=== PATIENT | female | born 1940 | race Caucasian/White ===

== ENCOUNTER 2020-03-08 11:55 | Outpatient (CLI) | payer MEDICARE ==
[2020-03-08] MEDS ORDERED: MELO15TA24 PO (12:53)
[2020-03-08] MEDS ORDERED: BUDE10.2 INH (12:53)
[2020-03-08] MEDS ORDERED: PRAM0.5T PO (12:53)
[2020-03-08] MEDS ORDERED: DIPH1TAB6 PO (12:53)
[2020-03-08] MEDS ORDERED: SIMV20TA19 PO (12:53)
[2020-03-08] MEDS ORDERED: ACET-1600 PO (12:53)
[2020-03-08] MEDS ORDERED: OMEP-110 PO (12:53)
[2020-03-08] MEDS ORDERED: SERT100T32 PO (12:53)
[2020-03-08] MEDS ORDERED: ASPI81TA45 PO (12:53)
[2020-03-08] MEDS ORDERED: TIOT18CA INH (12:53)
[2020-03-08 13:04] LABS: ALANINE AMINOTRANSFERASE 21 U/L (12-78); ALBUMIN 3.6 g/dL (3.4-5.0); ANION GAP 7 mmol/L (5-15); CALCIUM 8.4 mg/dL (8.5-10.1); CHLORIDE 107 mmol/L (98-107)
[2020-03-08 13:07] LABS: ALKALINE PHOSPHATASE 76 U/L (45-117); BILIRUBIN,TOTAL 0.3 mg/dL (0.2-1.0); TOTAL PROTEIN 6.9 g/dL (6.4-8.2)
[2020-03-12] MEDS ORDERED: FENTANYL PF 100 MCG/2ML ONE (07:58)
[2020-03-12] MEDS ORDERED: ONDANSETRON 2MG/ML, 2ML ONE (10:10)
[2020-03-12] MEDS ORDERED: CEFAZOLIN 1,000 MG ONE (10:10)
[2020-03-12] MEDS ORDERED: DEXAMETHASONE 4 MG/ML, 1ML ONE (10:10)
[2020-03-12] MEDS ORDERED: PROPOFOL 10 MG/ML, 20ML ONE (10:10)
[2020-03-12] MEDS ORDERED: ROCURONIUM 10MG/ML,5ML ONE (10:10)
== END 2020-03-08 23:59 | disposition home or self-care (01) ==
LOC: STAR 11:55
PROVIDERS: ATTEND Orthopaedic Surgery
DX: Z01.818 Encounter for other preprocedural examination (principal); Z11.59 Encounter for screening for other viral diseases; S92.351A Displaced fracture of fifth metatarsal bone, right foot, initial encounter for closed fracture; X58.XXXA Exposure to other specified factors, initial encounter; Y93.89 Activity, other specified; Y92.89 Other specified places as the place of occurrence of the external cause; Y99.8 Other external cause status
CPT/HCPCS: 36415; 80053; 93005; U0001

== ENCOUNTER 2020-03-12 07:18 | Day surgery (SDC) | payer MEDICARE ==
[2020-03-08 12:21] VITALS: BP 141/70
[~2020-03-12] VITALS: Ht 170.2 cm; Wt 89.0 kg
[~2020-03-12 07:18] MED LIST: ACET-1600 PO; ASPI81TA45 PO; BUDE10.2 INH; DIPH1TAB6 PO; MELO15TA24 PO; OMEP-110 PO; PRAM0.5T PO; SERT100T32 PO; SIMV20TA19 PO; TIOT18CA INH
[2020-03-12] MEDS ORDERED: LACTATED RINGERS 1,000 ML IV SCH (07:43)
[2020-03-12] MEDS ORDERED: CHLORHEXIDINE 15 ML UDC ONE (07:59)
[2020-03-12] MEDS ORDERED: CHLORHEXIDINE 15 ML UDC MM ONE (08:00)
[2020-03-12] MEDS ORDERED: BUPIVACAINE/PF 0.5% ONE (08:51)
[2020-03-12] MEDS ORDERED: LIDOCAINE 1%, 20ML ONE (08:51)
[2020-03-12] MEDS ORDERED: CEFAZOLIN 1,000 MG ONE (09:40)
[2020-03-12] MEDS ORDERED: ONDANSETRON 2MG/ML, 2ML ONE (09:40)
[2020-03-12] MEDS ORDERED: DEXAMETHASONE 4 MG/ML, 1ML ONE (09:40)
[2020-03-12] MEDS ORDERED: PROPOFOL 10 MG/ML, 20ML ONE (09:40)
[2020-03-12] MEDS ORDERED: ROCURONIUM 10 MG/ML,10ML ONE (09:40)
[2020-03-12] MEDS ORDERED: PROMETHAZINE 25 MG/ML, 1ML IVPush PRN (10:30)
[2020-03-12] MEDS ORDERED: HYDROmorphone 1 MG/ML, 1ML INJ IVPush PRN (10:30)
[2020-03-12] MEDS ORDERED: LORazepam 2 MG/ML, 1ML IVPush PRN (10:30)
[2020-03-12] MEDS ORDERED: FENTANYL PF 100 MCG/2ML IV PRN (10:30)
[2020-03-12] MEDS ORDERED: ONDANSETRON 2MG/ML, 2ML IVPush PRN (10:30)
[2020-03-12] MEDS ORDERED: OXYcodone 5 MG/5 ML ORAL.SOL UDC PO PRN (10:30)
[2020-03-12] MEDS ORDERED: ACETAMINOPHEN 325 MG TABLET PO PRN (10:30)
[2020-03-12] MEDS ORDERED: ALBUTEROL/IPRATROPIUM 2.5MG/0.5MG, 3 ML NPPB PRN (10:30)
[2020-03-12] MEDS ORDERED: PROMETHAZINE 25 MG SUPP PR PRN (10:30)
== END 2020-03-12 12:20 | disposition home or self-care (01) ==
LOC: OUT 07:18
PROVIDERS: ATTEND Orthopaedic Surgery
DX: S92.351K Displaced fracture of fifth metatarsal bone, right foot, subsequent encounter for fracture with nonunion (principal); Z11.59 Encounter for screening for other viral diseases; E11.9 Type 2 diabetes mellitus without complications; M19.90 Unspecified osteoarthritis, unspecified site; X58.XXXD Exposure to other specified factors, subsequent encounter; Z88.3 Allergy status to other anti-infective agents; Z79.82 Long term (current) use of aspirin; Z79.84 Long term (current) use of oral hypoglycemic drugs; Z79.899 Other long term (current) drug therapy; Z90.49 Acquired absence of other specified parts of digestive tract; Z90.710 Acquired absence of both cervix and uterus; Z98.890 Other specified postprocedural states; Z87.891 Personal history of nicotine dependence
CPT/HCPCS: 28322; 87635; J0690; J1100; J2405; J2704; J3010